=== PATIENT | female | born 1985 | race Caucasian/White ===

== ENCOUNTER → 2020-03-16 13:36 | Outpatient (BNVA) | payer OTHER, SELFPAY | PROVIDERS: Visit Provider Anesthesiology | DX: Z76.89 Persons encountering health services in other specified circumstances (principal) ==

== ENCOUNTER → 2020-03-16 13:36 | Outpatient (BNVA) | payer OTHER, SELFPAY | PROVIDERS: PCP Nurse Practitioner Family; Visit Provider Anesthesiology | DX: Z13.89 Encounter for screening for other disorder (principal) ==

== ENCOUNTER 2020-03-23 17:48 | Outpatient (REF) | payer OTHER, SELFPAY | END 2020-03-23 17:49 | disposition home or self-care (01) | LOC: HO.LAB 17:48 | PROVIDERS: Visit Provider Internal Medicine | DX: Z20.828 Contact with and (suspected) exposure to other viral communicable diseases (principal) | CPT/HCPCS: 87635 ==

== ENCOUNTER 2020-04-13 09:34 | Day surgery (SDC) | payer OTHER, SELFPAY ==
--- NOTE | 2020-04-12 14:28 | HO.ANESPROP2 ---
Documented by User: Bambi Irwin 04/12/20 14:30 HPI - Anesthesia Eval Consult details Narrative: 34yo F for Sacroiliac Joint Steroid Injection left PMFSH Past Medical History Medical History Low back pain Sacroiliitis Surgical History Surgical History (Updated 04/12/20 @ 14:30 by Bambi Irwin) H/O tubal ligation H/O wisdom tooth extraction History of tonsillectomy S/P cholecystectomy Social History Social History Smoking Status: Never smoker Use of substances other than those prescribed or required for medical reasons: No Advance Directives: No Advance Directives Information Provided: No Meds Allergies Allergy/AdvReac Type Severity Reaction Status Date / Time No Known Allergies Allergy Unverified 02/23/20 16:09 [No Known Allergies*] Exam Exam Date and Time: April 12, 2020 142 Assessment and Plan Assessment Anesthesia Assessment: Chart Reviewed Documented by User: Sam Burnette 04/13/20 11:46 PMFSH Past Medical History Medical History Low back pain Sacroiliitis Surgical History Surgical History (Updated 04/12/20 @ 14:30 by Bambi Irwin) H/O tubal ligation H/O wisdom tooth extraction History of tonsillectomy S/P cholecystectomy Social History Social History Smoking Status: Never smoker Use of substances other than those prescribed or required for medical reasons: No Advance Directives: No Advance Directives Information Provided: No Meds Allergies Allergy/AdvReac Type Severity Reaction Status Date / Time No Known Allergies Allergy Unverified 02/23/20 16:09 [No Known Allergies*] Exam Airway Mallampati Class: II TM Dist: >3cm Neck ROM: Full Heart: RRR Assessment and Plan Assessment Anesthesia Assessment: Anesthesia Plan Discussed Final Anesthetic Review NPO: Yes ASA Class: II Final Preanesthetic Review: Consent Obtained/Reviewed Anesthetic Plan Anesthetic Plan: GA Disposition: Standard PACU
[2020-04-13 09:47] VITALS: BMI 25.9
[2020-04-13 10:03] VITALS: BP 117/70; PULSE 87; RESP 16; TEMP 36.6; O2SAT 98
[2020-04-13] MEDS: Lactated Ringers 1,000 ML 100 ML IVCONT (10:17)
--- NOTE | 2020-04-13 11:45 | FL_ITS ---
EXAMINATION: XR FLUOROSCOPY WITH IMAGES CLINICAL INFORMATION: Sacroiliac injection. COMPARISON: None. TECHNIQUE: Fluoroscopy performed by Dr. Catarino Spencer. Fluoroscopy time: 0.4 minutes DAP: 5.01 Gycm2 Images: 2 FINDINGS: 4 needles are seen overlying the right sacrum on one image with a single needle seen overlying the right L5 transverse process with small amount of contrast injected. FL/FL guidance in OR IMPRESSION: Right-sided pelvic and L5 region injection.
--- NOTE | 2020-04-13 11:45 | MHC.SHP ---
Pre-Procedural Eval Section A The patient is an INPATIENT: No The History & Physical has been completed within 30 days and I have reviewed it.: No Section B Chief Complaint: SACROILIITIS Details of Present Illness: sacroiliitis, low back pain Relevant Family History (Specify if Yes): No Relevant Social History: None Present Medications: see Short Stay Collaborative assessment Medical History: No relevant PMH History of Previous Operations: No relevant previous surgery Allergies: Allergies Allergy/AdvReac Type Severity Reaction Status Date / Time No Known Allergies Allergy Unverified 02/23/20 16:09 [No Known Allergies*] Review of Systems Sugical H&P ROS: Negative: Constitution, Cardiovascular, Respiratory, Neurological, Psychiatric, Hem-Onc, Allergic/Immunologic, Gastrointestinal, Genitourinary, Musculoskeletal, Integumentary, Endocrine and Eyes/Ears/Nose/Throat Exam Surgical H&P Exam: Normal: HEENT, Normal: Heart, Normal: Lungs, Normal: Extremities, Normal: Abdomen, Normal: Skin and Normal: Neurological Plan Diagnosis/Plan: Change ( left sacroiliac joint diagnostic innervation injection with bupivacaine alone and no steroids!) Patient has been examined and remains a candidate for the planned procedure
[2020-04-13 12:46] VITALS: BP 129/79; PULSE 105; RESP 18; TEMP 36.3; O2SAT 98
[2020-04-13 12:51] VITALS: BP 122/81; PULSE 101; RESP 16; O2SAT 97
[2020-04-13 12:56] VITALS: BP 112/73; PULSE 92; RESP 18; O2SAT 97
[2020-04-13 13:01] VITALS: BP 106/72; PULSE 90; RESP 18; O2SAT 97
--- NOTE | 2020-04-13 13:03 | HO.ANESPROP2 ---
[facility] Past Medical History Medical History Low back pain Sacroiliitis Surgical History Surgical History (Updated 04/12/20 @ 14:30 by Bambi Irwin) H/O tubal ligation H/O wisdom tooth extraction History of tonsillectomy S/P cholecystectomy Social History Social History Smoking Status: Never smoker Use of substances other than those prescribed or required for medical reasons: No Advance Directives: No Advance Directives Information Provided: No Meds Allergies Allergy/AdvReac Type Severity Reaction Status Date / Time No Known Allergies Allergy Unverified 02/23/20 16:09 [No Known Allergies*] Exam Exam Date and Time: April 13, 2020 1303 Height,Weight and Vital Signs: Height 5 ft 2 in Weight 64.41 kg Last Vital Signs Temp 97.4 F 04/13/20 12:46 Pulse 105 H 04/13/20 12:46 Resp 18 04/13/20 12:46 BP 129/79 04/13/20 12:46 Pulse Ox 98 04/13/20 12:46 Airway Mallampati Class: III TM Dist: >3cm Neck ROM: Full Heart: RRR Assessment and Plan Assessment Anesthesia Assessment: Anesthesia Plan Discussed Final Anesthetic Review NPO: Yes ASA Class: III Final Preanesthetic Review: Consent Obtained/Reviewed Anesthetic Plan Anesthetic Plan: MAC: Disposition: Standard PACU
[2020-04-13 13:16] VITALS: BP 100/67; PULSE 86; RESP 16; O2SAT 98
--- NOTE | 2020-04-13 13:32 | PM.OP ---
Brief Operative Note Date of procedure: 04/13/20 Pre-op diagnosis: Sacroiliitis Post-op diagnosis: same Procedure: sacroiliac joint innervation injection left Implants: none Surgeon: Catarino Spencer MD Anesthesia: GETA Estimated blood loss (mL): 0 Pathology: none sent Condition: stable Disposition: PACU
--- NOTE | 2020-04-13 14:16 | HO.POSTANES ---
Post Anesthesia Evaluation Post Anesthesia Evaluation Vital Signs: Vital Signs Temp Pulse Resp BP Pulse Ox 04/13/20 13:16 97.4 F 86 16 100/67 98 04/13/20 13:01 90 18 106/72 97 04/13/20 12:56 92 18 112/73 97 04/13/20 12:51 101 H 16 122/81 97 04/13/20 12:46 97.4 F 105 H 18 129/79 98 04/13/20 10:03 97.9 F 87 16 117/70 98 Anesthesia: General Endotracheal-GETA Mental Status: Awake Pain Control: Satisfactory Nausea/Vomiting: None Hydration: Adequate Anesthesia-Related Issues: No Anes. Related Issues
--- NOTE | 2020-04-13 16:29 | W.PM.OPN ---
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 After obtaining informed consent patient was brought to the operating room, she was Supine on the stretcher, [employer] monitors were applied and patient was induced with general anesthesia and intubated. Patient was transferred prone on operating table, all pressure points were protected. Time-out was performed delineating correct site, side, the nature of the procedure, patient's allergy, preoperative antibiotic. All operating room staff was participating in OR time-out procedure. The lower back and left buttock of the patient's were prepped with ChloraPrep and draped with utility drapes. Sterilely draped C-arm was brought over the operating field and sq picture of L5 vertebra was delineated on the screen. Connection of the superior articular process of L5 with transverse process of L5 was chosen as the target of the injection. 22 gauge 3-1/2 inch needle was inserted through the skin and advanced to the described point of interest in tunnel vision fashion. When needle gently contacted the bone small amount of the contrast was injected demonstrating no intravascular and no intrathecal uptake of the contrast. After that injection of the 1 cc of bupivacaine 0.5% was performed into the needle. The needle was removed and then attention was concentrated on the left does ramus L5 position. The connection of the sacral alae with superior articular process of S1 on the left was chosen as the target of the injection. Again 22 gauge 3-1/2 inch needle was driven to were the target through the skin in tunnel vision fashion. When needle gently contacted the bone the small amount of the contrast was injected demonstrating no intravascular and no intrathecal uptake. After that injection of the small amount of bupivacaine 0.5% 1 cc was performed into that needle. The needle left to staying place. After that attention was concentrated on lowest portion of the sacroiliac joint with attention to the sacral side of the joint. 22 gauge 3-1/2 inch needle was driven to were the point of interest in tunnel vision fashion again. When needle gently contacted the bone small amount of bupivacaine 1 cc of 0.5% was injected into the needle. After that the 2 above described needles were demonstrated on the screen and the distance between them was evenly divided between the another 7 needle positions. The needles were inserted through the skin to the the sacral bone in palisade fashion. When needles were contacting the bone small amount of the bupivacaine 0.5% No more than 1 cc was injected into each needle position. after that all needles were removed and sterile dressing were applied. Patient tolerated procedure well she was at the end of the procedure transferred to the [facility] awaken extubated and transferred stable to PACU without significant complications.
== END 2020-04-13 14:45 | disposition home or self-care (01) ==
PROVIDERS: Visit Provider Anesthesiology
PROC: 3E0U33Z Introduction of Anti-inflammatory into Joints, Percutaneous Approach (ICD-10-PCS; CPT 27096; principal; 2020-04-13 10:40)
DX: M46.1 Sacroiliitis, not elsewhere classified (principal); M54.16 Radiculopathy, lumbar region; Z90.49 Acquired absence of other specified parts of digestive tract; Z79.899 Other long term (current) drug therapy
CPT/HCPCS: 64451; J0330; J1100; J2250; J2405; Q9967

== ENCOUNTER → 2020-04-16 13:39 | Outpatient (BNVA) | payer OTHER, SELFPAY | PROVIDERS: PCP Internal Medicine; Visit Provider Anesthesiology | DX: M46.1 Sacroiliitis, not elsewhere classified (principal); M54.5 Low back pain; J04.0 Acute laryngitis; R20.2 Paresthesia of skin | CPT/HCPCS: 99212 ==

== ENCOUNTER → 2020-05-16 15:06 | Outpatient (BNVA) | payer OTHER, SELFPAY | PROVIDERS: PCP Internal Medicine; Visit Provider Anesthesiology | DX: M54.5 Low back pain (principal); M46.1 Sacroiliitis, not elsewhere classified ==

== ENCOUNTER → 2020-06-14 15:20 | Outpatient (BNVA) | payer OTHER, SELFPAY | PROVIDERS: PCP Internal Medicine; Visit Provider Anesthesiology | DX: Z76.89 Persons encountering health services in other specified circumstances (principal) ==

== ENCOUNTER → 2020-07-05 12:35 | Outpatient (BNVA) | payer OTHER, SELFPAY | PROVIDERS: PCP Nurse Practitioner Family; Visit Provider Anesthesiology ==

== ENCOUNTER → 2020-08-06 14:36 | Outpatient (BNVA) | payer OTHER, SELFPAY | PROVIDERS: PCP Nurse Practitioner Family; Visit Provider Anesthesiology | DX: G89.4 Chronic pain syndrome (principal); M46.1 Sacroiliitis, not elsewhere classified; M54.5 Low back pain; Z79.899 Other long term (current) drug therapy | CPT/HCPCS: 99212 ==

== ENCOUNTER → 2020-09-06 15:55 | Outpatient (BNVA) | payer OTHER, SELFPAY | PROVIDERS: PCP Nurse Practitioner Family; Visit Provider Anesthesiology | DX: M46.1 Sacroiliitis, not elsewhere classified (principal); M54.5 Low back pain; M16.10 Unilateral primary osteoarthritis, unspecified hip; G89.4 Chronic pain syndrome; Z79.899 Other long term (current) drug therapy | CPT/HCPCS: 99212 ==

== ENCOUNTER → 2020-09-20 13:38 | Outpatient (BNVA) | payer OTHER, SELFPAY | PROVIDERS: PCP Nurse Practitioner Family; Visit Provider Anesthesiology | DX: G89.4 Chronic pain syndrome (principal); M46.1 Sacroiliitis, not elsewhere classified; M54.5 Low back pain; M16.10 Unilateral primary osteoarthritis, unspecified hip; Z79.899 Other long term (current) drug therapy | CPT/HCPCS: 99212 ==

== ENCOUNTER 2020-10-17 12:53 | Outpatient (REF) | payer OTHER, SELFPAY ==
--- NOTE | ~2020-10-17 | XR_ITS ---
EXAMINATION: XR HIP, LEFT CLINICAL INFORMATION: Arthritis COMPARISON: None TECHNIQUE: Two views of the left hip. FINDINGS: No fracture or dislocation is seen. There is a small superior lateral acetabular osteophyte. There is an IUD in the pelvis. Soft tissues are otherwise unremarkable. XR/XR hip LT min 2V IMPRESSION: Small superior lateral acetabular osteophyte otherwise unremarkable exam.
== END 2020-10-17 12:54 | disposition home or self-care (01) ==
LOC: HO.XRAY 12:53
PROVIDERS: PCP Nurse Practitioner Family; Visit Provider Anesthesiology
DX: M16.10 Unilateral primary osteoarthritis, unspecified hip (principal)
CPT/HCPCS: 73502

== ENCOUNTER → 2020-10-19 14:39 | Outpatient (BNVA) | payer OTHER, SELFPAY | PROVIDERS: PCP Nurse Practitioner Family; Visit Provider Nurse Practitioner Family | DX: G89.4 Chronic pain syndrome (principal); M46.1 Sacroiliitis, not elsewhere classified; M54.5 Low back pain; M16.10 Unilateral primary osteoarthritis, unspecified hip | CPT/HCPCS: 99212 ==

== ENCOUNTER → 2020-11-19 15:57 | Outpatient (BNVA) | payer OTHER, SELFPAY | PROVIDERS: PCP Nurse Practitioner Family; Visit Provider Anesthesiology | DX: G89.4 Chronic pain syndrome (principal); M46.1 Sacroiliitis, not elsewhere classified; M54.5 Low back pain; M16.10 Unilateral primary osteoarthritis, unspecified hip; Z79.899 Other long term (current) drug therapy | CPT/HCPCS: 99212 ==

== ENCOUNTER → 2020-12-19 15:48 | Outpatient (BNVA) | payer OTHER, SELFPAY | PROVIDERS: PCP Nurse Practitioner Family; Visit Provider Nurse Practitioner Family | DX: G89.4 Chronic pain syndrome (principal); M46.1 Sacroiliitis, not elsewhere classified; M54.5 Low back pain; M16.10 Unilateral primary osteoarthritis, unspecified hip; Z79.899 Other long term (current) drug therapy | CPT/HCPCS: 99212 ==